=== PATIENT | female | born 1985 | race Two or more races ===

== ENCOUNTER 2016-12-29 12:00 | Emergency (ER) | payer OTHER ==
[2016-12-29 12:05] VITALS: BP 129/81; PULSE 72; TEMP 98.7; BMI 34.7
[2016-12-29] MEDS ORDERED: DIPHTH,PERTUSS(ACELL),TET 0.5 ML DISP.SYRIN IM ONE (12:24)
[2016-12-29] MEDS ORDERED: SILVER SULFADIAZINE 1% TOP CREAM 50 GM JAR TP ONE ×2 (12:24)
--- NOTE | 2016-12-29 12:27 | PDOC ---
History of Present Illness - General Chief Complaint: Burn Stated Complaint: BURN TO LEFT FOREARM Time Seen by Provider: 12/29/16 12:11 History Source: Patient (Patient walked in complaining of accidental skin burn on the left forearm when grilling plantane last night at home) Exam Limitations: No Limitations - History of Present Illness Timing/Duration: 24 hours Modifying Factors: improves with: cold therapy Associated Symptoms: reports: denies symptoms Past History - Travel Traveled outside of the country in the last 30 days: No Close contact w/someone who was outside of country & ill: No - Past Medical History Allergies/Adverse Reactions: Allergies Allergy/AdvReac Type Severity Reaction Status Date / Time No Known Allergies Allergy Verified 12/29/16 12:02 Home Medications: Ambulatory Orders NK [No Known Home Medication] 12/29/16 Other medical history: PT DENIES - Suicide/Smoking/Psychosocial Hx Smoking History: Never smoked Hx Alcohol Use: No Drug/Substance Use Hx: No Substance Use Type: None Review of Systems - Review of Systems Able to Perform ROS?: Yes Is the patient limited [place]anese proficient: Yes Constitutional: No: Symptoms Reported, See HPI, Chills, Diaphoresis, Fever, Loss of Appetite, Malaise, Night Sweats, Weakness, Weight Stable, Unintentional Wgt. Loss, Unexplained wgt Loss, Other HEENTM: No: Symptoms Reported, See HPI, Eye Pain, Blurred Vision, Tearing, Recent change in vision, Double Vision, Cataracts, Ear Pain, Ocular Prothesis, Ear Discharge, Nose Pain, Nose Congestion, Tinnitus, Nose Bleeding, Hearing Loss , Throat Pain, Throat Swelling, Mouth Pain, Dental Problems, Difficulty Swallowing, Mouth Swelling, Other Respiratory: No: Symptoms reported, See HPI, Cough, Orthopnea, Shortness of Breath, SOB with Exertion, SOB at Rest, Stridor, Wheezing, Productive cough, Hemoptysis, Other Integumentary: Yes: Symptoms Reported, See HPI *Physical Exam - Vital Signs Last Vital Signs Temp Pulse Resp BP Pulse Ox 98.7 F 72 16 129/81 98 12/29/16 12:01 12/29/16 12:01 12/29/16 12:01 12/29/16 12:01 12/29/16 12:01 - Physical Exam General Appearance: Yes: Nourished, Appropriately Dressed HEENT: positive: GRZEGORZ Respiratory/Chest: positive: Lungs Clear Extremity: positive: Normal Capillary Refill Integumentary: positive: Normal Color, Dry, Other (An area of aprox 10x6cm of intact blister on the left forearm inner part less than 6% of body surface.) Neurologic: positive: Fully Oriented, Alert, Normal Mood/Affect Procedures - Additional Procedures Progress: After aseptic prep of the skin, debridment of the skin blister performed , clean sterile dresing applied with Silvadene cream. Patient tolerated procedure well 12/31/16 19:51 *DC/Admit/Observation/Transfer Diagnosis at time of Disposition: Skin burn - Discharge Dispostion Disposition: HOME Condition at time of disposition: Stable Admit: No - Referrals Referrals: Kael Mcgrath MD [Staff Physician] - - Patient Instructions Printed Discharge Instructions: How to Take Care of a Burn, DI for [place], Tetanus, Diphtheria, Pertussis (Tdap) Vaccine Additional Instructions: Clean a nd dry . Change dressing every 2 days as long as you could keep it clean and dry If redness pain see MD or return to ED
== END 2016-12-29 12:59 | disposition home or self-care (01) ==
LOC: FER 12:00
PROC: 3E0234Z Introduction of Serum, Toxoid and Vaccine into Muscle, Percutaneous Approach (ICD-10-PCS; principal; 2016-12-29)
DX: T22.012A Burn of unspecified degree of left forearm, initial encounter (principal); T65.91XA Toxic effect of unspecified substance, accidental (unintentional), initial encounter; Y92.9 Unspecified place or not applicable
CPT/HCPCS: 90471; 90715; 99281-25